=== PATIENT | female | born 1950 | race Caucasian/White ===

== ENCOUNTER → 2018-02-01 | Outpatient (CLI) | payer MEDICARE, OTHER ==
[~2018-02-01] MED LIST: GABAPENTIN300 MG PO; INSULIN; KEFLEX500 MG PO; LISINOPRIL20 MG PO; PHENERGAN 25 MG25 MG PO; SKELAXIN 800 M800 MG PO
[2018-02-01 11:14] LABS: HEMATOCRIT 42.9 % (37.0-47.0); HEMOGLOBIN 14.7 gm/dL (12.0-15.0); MCHC 34.3 g/dL (28.0-37.0); MCV 93.4 fL (80.0-100.0); MPV 7.3 fl. (7.2-11.1); RBC 4.6 mil/uL (4.20-5.00); RDW-CV 12.6 % (10.5-14.5); WBC 9.4 thou/uL (4.0-11.0)
[2018-02-01 11:27] LABS: CALCIUM 8.3 mg/dL (8.5-10.1); CREATININE 0.8 mg/dL (0.6-1.3); POTASSIUM 3.2 mmol/L (3.5-5.1)
[2018-02-01 11:28] LABS: URINE BILIRUBIN NEGATIVE (Negative); URINE BLOOD NEGATIVE (Negative); URINE CLARITY CLEAR; URINE COLOR YELLOW; URINE GLUCOSE-RANDOM TRACE (Negative); URINE KETONES NEGATIVE (Negative); URINE NITRITE-REFLEX NEGATIVE (Negative); URINE PROTEIN NEGATIVE (Negative); URINE UROBILINOGEN 0.2 E.U./dl (0.2-1.0)
[2018-02-01 11:31] LABS: URINE LEUKOCYTES-REFLEX 2+ (Negative)
[2018-02-01 11:42] LABS: CASTS None Seen /LPF (None Seen); CRYSTALS None Seen /LPF (None Seen); SQUAMOUS 4-10 Moderate /LPF (0-3); URINE RBC None Seen /HPF (0-2); URINE WBC-REFLEX 6-15 Few /HPF (0-5)
[2018-02-01 11:43] LABS: BACTERIA-REFLEX 1-9 Few /HPF (None Seen); MUCUS 0-3 Light strn/LPF (None Seen)
[2018-02-02 02:06] LABS: GLYCOHEMOGLOBIN (HGB A1C) 9.9 % (4.8-5.6)
== END ==
LOC: M.LAB 10:58
DX: E11.9 Type 2 diabetes mellitus without complications (principal); N32.81 Overactive bladder; N39.3 Stress incontinence (female) (male); R35.0 Frequency of micturition; R35.1 Nocturia; I10 Essential (primary) hypertension; Z86.2 Personal history of diseases of the blood and blood-forming organs and certain disorders involving the immune mechanism